=== PATIENT | female | born 1950 | race Caucasian/White ===

== ENCOUNTER → 2016-10-16 | Outpatient (CLI) | payer BC ==
[~2016-10-16] MED LIST: ATEN-147 PO; HYDR25TA4 PO; PRENATAL GUMMY PO; TRAM-21 PO
--- OUTSIDE RECORDS SUMMARY | 2016-10-16 11:13 | XMS REPORT | Continuity of Care Document ---
Author Author [facility] Organization [facility] Address Unknown Phone Unavailable Care Team Providers Care Copping Machine Operator Name Role Phone PCP Unavailable Source Comments Some departments are not documenting in the electronic medical record. If you do not see the information that you expected, contact Release of Information in the Health Information Management department at [phone] for further assistance in locating additional records.[facility] Active Allergies and Adverse Reactions Allergen Noted Date Severity Reactions Comments Codeine 04/11/2016 Low NAUSEA AND VOMITING Current Medications Prescription Sig. Disp. Refills Start End Date Status Date atenolol (TENORMIN) 25 mg Take 25 mg by mouth Active tablet daily. hydrochlorothiazide Take 25 mg by mouth every Active (HYDRODIURIL) 25 mg morning. tablet Active Problems Not on file Social History Tobacco Use Types Packs/Day Years Used Date Never Smoker Last Filed Vital Signs Vital Sign Reading Time Taken Blood Pressure 141/82 04/11/2016 10:59 AM CDT Pulse 72 04/11/2016 10:59 AM CDT Temperature - - Respiratory Rate - - Height 1.651 m (5' 5") 04/11/2016 10:59 AM CDT Weight 87.091 kg (192 lb) 04/11/2016 10:59 AM CDT Body Mass Index 31.95 04/11/2016 10:59 AM CDT Oxygen Saturation - - Plan of Care Health Maintenance Due Date Last Done Comments Hepatitis C Screening 1952 Physical (Comprehensive) 1959 Exam Pertussis Vaccine 1963 Tetanus Vaccine 1969 Cervical Cancer Screening 1973 Breast Cancer Screening 1992 Colorectal Cancer 2002 Screening Shingles Vaccine 2012 Influenza Vaccine 05/24/2016 Results from Last 3 Months Not on file
[2016-10-16 11:46] LABS: BASOPHILS % (AUTO) 1 % (0-10); EOSINOPHILS # (AUTO) 0.2 10^3/uL (0.0-0.3); EOSINOPHILS % (AUTO) 2 % (0-10); LYMPHOCYTES # (AUTO) 2.6 X 10^3 (1.0-4.0); LYMPHOCYTES % (AUTO) 38 % (12-44); MEAN CORPUSCULAR HEMOGLOBIN 31 PG (25-34); MEAN CORPUSCULAR HGB CONC 36 G/DL (32-36); MEAN CORPUSCULAR VOLUME 86 FL (80-99); MEAN PLATELET VOLUME 9.9 FL (7.4-10.4); MONOCYTES # (AUTO) 0.6 X 10^3 (0.0-1.0); MONOCYTES % (AUTO) 9 % (0-12); NEUTROPHILS # (AUTO) 3.5 X 10^3 (1.8-7.8); NEUTROPHILS % (AUTO) 50 % (42-75); PLATELET COUNT 288 10^3/uL (130-400); RED BLOOD COUNT 4.45 10^6/uL (4.35-5.85); RED CELL DISTRIBUTION WIDTH 12.4 % (10.0-14.5); WHITE BLOOD COUNT 6.8 10^3/uL (4.3-11.0)
[2016-10-16 12:05] LABS: ALANINE AMINOTRANSFERASE 21 U/L (0-55); ALBUMIN 4.2 G/DL (3.2-4.5); ANION GAP 10 MMOL/L (5-14); ASPARTATE AMINO TRANSFERASE 23 U/L (5-34); BILIRUBIN,TOTAL 0.4 MG/DL (0.1-1.0); BLOOD UREA NITROGEN 10 MG/DL (7-18); BUN/CREATININE RATIO 12; CALCIUM 10.3 MG/DL (8.5-10.1); CARBON DIOXIDE 27 MMOL/L (21-32); CHLORIDE 103 MMOL/L (98-107); CREATININE SERUM 0.85 MG/DL (0.60-1.30); GFR ESTIMATED > 60; GLUCOSE 93 MG/DL (70-105); POTASSIUM 3.1 MMOL/L (3.6-5.0); SODIUM 140 MMOL/L (135-145); TOTAL PROTEIN 7.1 G/DL (6.4-8.2)
== END ==
LOC: LAB 11:09
PROVIDERS: ATTEND Internal Medicine Hematology & Oncology
DX: C50.211 Malignant neoplasm of upper-inner quadrant of right female breast (principal)
CPT/HCPCS: 36415; 80053; 85025

== ENCOUNTER → 2016-10-22 | Outpatient (CLI) | payer BC ==
--- OUTSIDE RECORDS SUMMARY | 2016-10-22 07:56 | XMS REPORT | Continuity of Care Document ---
Author Author [facility] Organization [facility] Address Unknown Phone Unavailable Care Team Providers Care Concrete Inspector Name Role Phone PCP Unavailable Source Comments Some departments are not documenting in the electronic medical record. If you do not see the information that you expected, contact Release of Information in the Health Information Management department at [phone] for further assistance in locating additional records.[facility] Active Allergies and Adverse Reactions Allergen Noted [...]
--- NOTE | 2016-10-22 18:47 | Diagnostic Imaging Report ---
Left breast diagnostic mammogram. INDICATION: History of right breast cancer. COMPARISON: 01/16/16 and prior exams. The current study was also evaluated with a Computer Aided Detection (CAD) system. FINDINGS: Oval asymmetry in the central aspect of the left MLO view appears slightly more prominent compared to prior studies. There is also question of an architectural distortion in the upper aspect of the left breast. These areas were evaluated with focal compression views with no definite mass identified. There has been a surgical biopsy performed and this might relate to postoperative scarring. Background parenchyma is heterogeneously dense. No definite mass or suspicious calcification. IMPRESSION: Architectural distortion slightly more prominent compared to the prior exams in the upper aspect of the left breast is perhaps related to prior biopsy. Evaluation pending. ACR BI-RADS Category 0: Incomplete. (Needs additional imaging evaluation). Result letter will be mailed to the patient. Note: At least 10% of breast cancer is not imaged by mammography. Dictated by: Dictated on workstation # [id number]
--- NOTE | 2016-10-22 20:36 | Diagnostic Imaging Report ---
Left breast ultrasound. INDICATION: History of right breast cancer. Asymmetries seen on left breast mammogram. TECHNIQUE: All four quadrants and the retroareolar region were examined on this study. FINDINGS: At 12 o'clock zone, 8 cm from the nipple there is a tiny cystic area with architectural distortion which corresponds to the prior lumpectomy site suggestive of scarring and tiny seroma about 5 mm size. There is no suspicious solid mass identified. No other findings of significance in the four quadrants or retroareolar region seen. IMPRESSION: Findings at the 12 o'clock zone are probably related to scarring. Six-month follow-up mammogram and ultrasound to ensure stability of the asymmetries and ultrasound findings likely related to postoperative scarring recommended. ACR BI-RADS Category 3: Probably benign findings. Dictated by: Dictated on workstation # [id number]
== END ==
LOC: RAD 07:52
PROVIDERS: ATTEND Internal Medicine Hematology & Oncology
DX: C50.211 Malignant neoplasm of upper-inner quadrant of right female breast (principal)
CPT/HCPCS: 76641

== ENCOUNTER → 2017-10-17 | Outpatient (CLI) | payer BC ==
[2017-10-17 13:11] LABS: BASOPHILS % (AUTO) 1 % (0-10); EOSINOPHILS # (AUTO) 0.1 10^3/uL (0.0-0.3); EOSINOPHILS % (AUTO) 2 % (0-10); HEMATOCRIT 39 % (35-52); HEMOGLOBIN 13.9 G/DL (11.5-16.0); LYMPHOCYTES # (AUTO) 2.5 X 10^3 (1.0-4.0); LYMPHOCYTES % (AUTO) 39 % (12-44); MEAN CORPUSCULAR HEMOGLOBIN 31 PG (25-34); MEAN CORPUSCULAR HGB CONC 36 G/DL (32-36); MEAN CORPUSCULAR VOLUME 87 FL (80-99); MEAN PLATELET VOLUME 9.6 FL (7.4-10.4); MONOCYTES # (AUTO) 0.6 X 10^3 (0.0-1.0); MONOCYTES % (AUTO) 9 % (0-12); NEUTROPHILS # (AUTO) 3.2 X 10^3 (1.8-7.8); NEUTROPHILS % (AUTO) 50 % (42-75); PLATELET COUNT 266 10^3/uL (130-400); RED BLOOD COUNT 4.47 10^6/uL (4.35-5.85); RED CELL DISTRIBUTION WIDTH 12.1 % (10.0-14.5); WHITE BLOOD COUNT 6.5 10^3/uL (4.3-11.0)
[2017-10-17 13:32] LABS: BUN/CREATININE RATIO 16; CALCIUM 9.6 MG/DL (8.5-10.1); CARBON DIOXIDE 24 MMOL/L (21-32); CHLORIDE 106 MMOL/L (98-107); CREATININE SERUM 0.83 MG/DL (0.60-1.30); GFR ESTIMATED > 60; GLUCOSE 90 MG/DL (70-105); POTASSIUM 4.1 MMOL/L (3.6-5.0); SODIUM 141 MMOL/L (135-145)
== END ==
LOC: CARD 12:58
PROVIDERS: ATTEND Plastic Surgery
DX: Z01.810 Encounter for preprocedural cardiovascular examination (principal); Z01.812 Encounter for preprocedural laboratory examination; N65.0 Deformity of reconstructed breast; N65.1 Disproportion of reconstructed breast; Z85.3 Personal history of malignant neoplasm of breast; Z90.11 Acquired absence of right breast and nipple
CPT/HCPCS: 36415; 80048; 85025; 93005

== ENCOUNTER → 2018-03-06 | Outpatient (CLI) | payer MEDICARE, OTHER ==
[~2018-03-06] MED LIST changes: +ASPI-586 PO; +METO100T6 PO
--- NOTE | 2018-03-06 19:35 | Diagnostic Imaging Report ---
INDICATION: Right breast carcinoma status post mastectomy. Patient has also had a left breast biopsy. An area of architectural distortion was previously described in September of 2016 with no underlying abnormality detected on diagnostic views. Six-month followup was recommended at that time but patient did not return for followup. Comparison is made with prior exam from 10/22/2016 and 01/16/2016. 2-D and 3-D unilateral left diagnostic mammography was performed including CC, MLO and conventional 90 degree lateral views. The current study was also evaluated with a Computer Aided Detection (CAD) system. FINDINGS: Left breast remains heterogeneously dense, limiting the sensitivity of mammography. The area of architectural distortion in the superior left breast appears stable. No discrete mass is identified. No malignant-appearing microcalcifications are identified. There are benign calcifications present. The left axilla is unremarkable. IMPRESSION: No mammographic features suspicious for malignancy are identified. ACR BI-RADS Category 2: Benign findings. Result letter will be mailed to the patient. Note: At least 10% of breast cancer is not imaged by mammography. Dictated by: Dictated on workstation # [id number]
== END ==
LOC: RAD 07:37
PROVIDERS: ATTEND Family Medicine
DX: Z85.3 Personal history of malignant neoplasm of breast (principal); Z90.11 Acquired absence of right breast and nipple

== ENCOUNTER 2018-03-11 11:00 | Outpatient (CLI) | payer MEDICARE, OTHER ==
[~2018-03-11] VITALS: Ht 165.1 cm; Wt 94.8 kg
[~2018-03-11 11:00] MED LIST changes: -ASPI-586 PO; -METO100T6 PO
[2018-03-11] MEDS ORDERED: ASPI-586 PO (11:04)
[2018-03-11] MEDS ORDERED: METO100T6 PO (11:04)
== END 2018-03-11 11:15 | disposition home or self-care (01) ==
LOC: PREOP 11:00
PROVIDERS: ATTEND Surgery
DX: Z01.818 Encounter for other preprocedural examination (principal)

== ENCOUNTER → 2018-10-20 | Outpatient (CLI) | payer MEDICARE, OTHER ==
[~2018-10-20] MED LIST changes: +ASPI-586 PO; +METO100T6 PO
--- NOTE | 2018-10-21 19:15 | Diagnostic Imaging Report ---
EXAM: Screening mammogram, digital with 3D tomosynthesis and CAD. COMPARISONS: 03/06/2018, 10/22/2016, 01/16/2016 and 09/14/2014. There are no current complaints. The patient has had a right mastectomy for carcinoma. FINDINGS: The fibroglandular tissue in the left breast is heterogeneously dense. This does limit the sensitivity of this exam. The area of architectural distortion in the superior aspect of breast seen previously is again evident and no different. The small area of increased density deep in the medial most aspect of the breast seen previously is also again visualized and unchanged. There is no primary or secondary sign of malignancy noted. IMPRESSION: There is no evidence of malignancy. ACR BI-RADS Category 1: Negative. Result letter will be mailed to the patient. Note: At least 10% of breast cancer is not imaged by mammography. Dictated by: Dictated on workstation # [id number]
== END ==
LOC: RAD 09:05
PROVIDERS: ATTEND Family Medicine
DX: Z12.31 Encounter for screening mammogram for malignant neoplasm of breast (principal)

== ENCOUNTER → 2019-11-03 | Outpatient (CLI) | payer MEDICARE, OTHER ==
--- NOTE | 2019-11-03 14:08 | Diagnostic Imaging Report ---
INDICATION: Screening. TECHNIQUE: The current study was also evaluated with a Computer Aided Detection (CAD) system. 3D Tomographic imaging was also performed. COMPARISON: 10/20/2018, 03/06/2018, and 10/22/2016. FINDINGS: There are scattered fibroglandular densities in both breasts. Tomographic images on the left demonstrate a focal area of architectural distortion superiorly on the MLO projection. There are a few benign type calcifications. The skin, nipple, and axilla are unremarkable. IMPRESSION: Questionable area of architectural distortion in the superior aspect of the left breast on the MLO projection. Further evaluation with spot compression views and, if warranted, ultrasound would be recommended to exclude the possibility of a discrete underlying mass. ACR BI-RADS Category 0: Incomplete. (Needs additional imaging evaluation). Result letter will be mailed to the patient. Note: At least 10% of breast cancer is not imaged by mammography. Dictated by: Dictated on workstation # [id number]
== END ==
LOC: RAD 12:39
PROVIDERS: ATTEND Family Medicine
DX: Z12.31 Encounter for screening mammogram for malignant neoplasm of breast (principal); R92.8 Other abnormal and inconclusive findings on diagnostic imaging of breast

== ENCOUNTER → 2019-11-20 | Outpatient (CLI) | payer MEDICARE, OTHER ==
--- NOTE | 2019-11-20 12:42 | Diagnostic Imaging Report ---
INDICATION: Left breast density. Patient presents for additional views. COMPARISON: Correlation is made with recent screening study from 11/03/2019. TECHNIQUE: Unilateral left 2-D and 3-D diagnostic mammography was performed including spot compression ML and exaggerated CC as well as conventional exaggerated CC and 90 degree lateral views. The current study was also evaluated with a Computer Aided Detection (CAD) system. 3-D tomosynthesis was also performed and reviewed. FINDINGS: There is some persistent density in the upper left breast posterior depth, approximately 7-9 cm from the nipple. This may be just lateral to the nipple line on the CC views. Further evaluation of this area with ultrasound is recommended. No suspicious calcifications are seen. IMPRESSION: Persistent left breast density, as described. Further evaluation with ultrasound is recommended and will be performed today. ACR BI-RADS Category 0: Incomplete. (Needs additional imaging evaluation). Result letter will be mailed to the patient. Note: At least 10% of breast cancer is not imaged by mammography. Dictated by: Dictated on workstation # [id number]
--- NOTE | 2019-11-20 13:38 | Diagnostic Imaging Report ---
INDICATION: Left breast density. Patient presents for further evaluation. CORRELATION is made with diagnostic mammogram earlier same day. Sonographic interrogation of the upper and outer aspects of the left breast was performed. At the 1 o'clock location, 7 cm from the nipple, there is a tiny cluster of cysts measuring approximately 4 mm x 3 mm x 6 mm. At the 2 o'clock location, 6 cm from nipple, there appears to be a small lymph node measuring approximately 5 mm x 3 mm at the 2 o'clock location 8 cm from the nipple there is a cystic area measuring 6 mm x 9 mm x 2 mm. It is uncertain if these account for the mammographic density. No suspicious findings are seen. IMPRESSION: BI-RADS 3 Benign-appearing findings sonographically, most consistent with cysts and intraparenchymal lymph nodes. It is uncertain if these correspond to the density noted mammographically. No concerning finding is identified sonographically, however, a follow-up left mammogram and left breast ultrasound in 6 months is recommended to show continued stability. ACR BI-RADS Category 3: Probably benign findings. Result letter will be mailed to the patient. Note: At least 10% of breast cancer is not imaged by mammography. Dictated by: Dictated on workstation # [id number]
== END ==
LOC: RAD 12:05
PROVIDERS: ATTEND Family Medicine
DX: N64.89 Other specified disorders of breast (principal)
CPT/HCPCS: 76642

== ENCOUNTER → 2019-12-15 | Outpatient (CLI) | payer MEDICARE, OTHER ==
--- NOTE | 2019-12-16 11:28 | Diagnostic Imaging Report ---
INDICATION: Thyroid nodule. TECHNIQUE: The patient was administered 201 uCi of I-123 orally and 4 hour and 24-hour thyroid uptake values as well as a thyroid scan were performed. FINDINGS: The 24 hour thyroid uptake is normal at 27% with normal values being 10-30%. The 4 hour uptake is 9% with normal values being 8-16%. The thyroid scan does show some increased activity within the left lobe of the thyroid. This could represent a hot nodule. No cold nodule is seen. The right lobe is unremarkable. IMPRESSION: 1. Normal 24-hour thyroid uptake. 2. Increased uptake in the left lobe of the thyroid, perhaps activity within a thyroid nodule, consistent with a hot nodule. Correlation with ultrasound is recommended. The patient's outside thyroid ultrasound is not available for direct comparison. Dictated by: Dictated on workstation # [id number]
== END ==
LOC: CARD 10:16
PROVIDERS: ATTEND Family Medicine
DX: E04.2 Nontoxic multinodular goiter (principal)
CPT/HCPCS: 78014

== ENCOUNTER → 2020-11-24 | Outpatient (CLI) | payer MEDICARE, OTHER ==
--- NOTE | 2020-11-24 13:59 | Diagnostic Imaging Report ---
Indication: One year follow-up left breast density. Correlation is made prior mammogram from 11/03/2019 and 10/20/2018. Unilateral left 2-D and 3-D diagnostic mammography was performed. Left breast remains heterogeneously dense. The area of question articular distortion in the upper left breast on MLO view at posterior depth appears less prominent on today's study. No discrete mass is seen. There are benign calcifications present. No suspicious microcalcifications are seen. Left axilla is unremarkable. IMPRESSION: BI-RADS 0 Stable left mammogram. Area of questionable architectural distortion upper left breast posterior depth is less prominent on today's study most likely represents fibroglandular tissue. Even so, follow-up left breast ultrasound to reevaluate previously noted areas of cysts and lymph nodes is recommended and will be performed and/or ACR BI-RADS Category 0: Incomplete. (Needs additional imaging evaluation). Result letter will be mailed to the patient. Note: At least 10% of breast cancer is not imaged by mammography. Dictated by: Dictated on workstation # [id number]
--- NOTE | 2020-11-24 15:22 | Diagnostic Imaging Report ---
INDICATION: Left breast density. Study is performed for follow-up. CORRELATION is made with prior ultrasound from 11/12/2019 as well as diagnostic mammogram from earlier the same day. There is a cluster of cysts at the 9:00 location, 7 cm from the nipple, in aggregate measuring 3 mm x 4 mm x 7 mm. At the 3:00 retroareolar region, there is a 5 mm cyst. The areas noted previously are not well seen on today's study. No concerning sonographic abnormality is identified. IMPRESSION: BI-RADS Category 2 Left breast cysts. The patient may return to routine annual screening mammography. ACR BI-RADS Category 2: Benign findings. Result letter will be mailed to the patient. Note: At least 10% of breast cancer is not imaged by mammography. Dictated by: Dictated on workstation # [id number]
== END ==
LOC: RAD 12:52
PROVIDERS: ATTEND Family Medicine
DX: N60.02 Solitary cyst of left breast (principal)
CPT/HCPCS: 76642; 77065; G0279

== ENCOUNTER → 2021-12-11 | Outpatient (CLI) | payer MEDICARE ==
--- NOTE | 2021-12-11 16:35 | Diagnostic Imaging Report ---
INDICATION: Routine screening. COMPARISON: 11/24/2020 and 11/03/2019. TECHNIQUE: Unilateral left 2D and 3D screening mammography was performed with CAD. FINDINGS: The left breast is heterogeneously dense, limiting the sensitivity of mammography. The parenchymal pattern appears stable. No dominant mass or malignant-appearing microcalcifications are seen. There are scattered benign calcifications present. The left axilla is unremarkable. IMPRESSION: No mammographic features suspicious for malignancy are identified. ACR BI-RADS Category 2: Benign findings. Result letter will be mailed to the patient. Note: At least 10% of breast cancer is not imaged by mammography. Dictated by: Dictated on workstation # [id number]
== END ==
LOC: RAD 14:59
PROVIDERS: ATTEND Family Medicine
DX: Z12.31 Encounter for screening mammogram for malignant neoplasm of breast (principal)
CPT/HCPCS: 77063

== ENCOUNTER → 2021-12-11 | Outpatient (CLI) | payer MEDICARE | LOC: LABNPT 13:02 | PROVIDERS: ATTEND Internal Medicine | DX: Z53.9 Procedure and treatment not carried out, unspecified reason (principal) ==

== ENCOUNTER → 2022-12-06 | Outpatient (CLI) | payer MEDICARE ==
--- NOTE | 2022-12-06 13:19 | Diagnostic Imaging Report ---
INDICATION: Right breast carcinoma. COMPARISON: 11/24/2020 and 11/20/2019. TECHNIQUE: Unilateral left 2D and 3D diagnostic mammography was performed with CAD. FINDINGS: The left breast is heterogeneously dense, limiting the sensitivity of mammography. The overall parenchymal pattern is stable. No mass or malignant-appearing microcalcifications are seen. There are scattered benign calcifications present. The left axilla is unremarkable. IMPRESSION: No mammographic features suspicious for malignancy are identified. ACR BI-RADS Category 2: Benign findings. Result letter will be mailed to the patient. Note: At least 10% of breast cancer is not imaged by mammography. Dictated by: Dictated on workstation # [id number]
== END ==
LOC: RAD 12:55
PROVIDERS: ATTEND Family Medicine
DX: Z85.3 Personal history of malignant neoplasm of breast (principal); Z90.11 Acquired absence of right breast and nipple
CPT/HCPCS: 77065; G0279

== ENCOUNTER → 2023-01-22 | Outpatient (CLI) | payer MEDICARE ==
--- NOTE | 2023-01-22 17:39 | Diagnostic Imaging Report ---
INDICATION: Postmenopausal screening COMPARISON: 03/12/2018 FINDINGS: AP Spine L1-L4: [BMD (g/cm2): 1.074] [T-Score: -1.1] [Z-Score: -0.3] [BMD Previous: 1.240] [BMD % Change: -13.4*] LT Hip Neck: [BMD (g/cm2): 0.826] [T-Score: -1.5] [Z-Score: -0.4] LT Hip Total: [BMD (g/cm2):0.905] [T-Score:-0.8] [Z-Score: 0.0] [BMD Previous: 0.915] [BMD % Change: -1.1] RT Hip Neck: [BMD (g/cm2):0.889] [T-Score:-1.1] [Z-Score:0.0] RT Hip Total: [BMD (g/cm2):0.911] [T-score:-0.8] [Z-Score:0.0] [BMD Previous:0.935] [BMD % Change:-2.6] *Indicates significant change from prior examination based on 95% confidence level. World Health Organization criteria for BMD interpretation classify patients as Normal (T-score at or above -1.0), Osteopenic (T-score between -1.0 and -2.5) or Osteoporotic (T-score at or below -2.5). LIMITATIONS AND MODIFICATION: None. FRACTURE RISK (FRAX SCORE): The ten year probability of (%): Major Osteoporotic Fracture: [14.9] Hip Fracture: [2.1] IMPRESSION: 1. Osteopenia (Low bone mass). 2. Bone mineral density has decreased by a statistically significant amount, as detailed above. 3. See below National Osteoporosis Foundation guidelines on when to potentially initiate pharmacologic therapy. Based on the National Osteoporosis Foundation Guidelines, pharmacologic treatment should be initiated in any of the following, unless clinical conditions suggest otherwise: * Any patient with prior fragility fracture of the hip or vertebrae. A spine fracture indicates 5X risk for subsequent spine fracture and 2X risk for subsequent hip fracture. * Osteoporosis (T-score <-2.5). * Postmenopausal women and men age 50 and older with low bone mass/osteopenia (T-score between -1.0 and -2.5) by DXA and 10-year major osteoporotic fracture greater than 20% or a 10-year probability of hip fracture greater than 3%. These fracture risks are supplied above in the FRAX score, if applicable. * Clinician judgement and/or patient preferences may indicate treatment for people with 10-year fracture probabilities above or below these levels. Dictated by: Dictated on workstation # [id number]
== END ==
LOC: RAD 10:50
PROVIDERS: ATTEND Family Medicine
DX: M85.89 Other specified disorders of bone density and structure, multiple sites (principal); Z78.0 Asymptomatic menopausal state
CPT/HCPCS: 77080